=== PATIENT | female | born 1980 | race African-American/Black ===

== ENCOUNTER 2017-05-14 21:58 | Emergency (ER) | payer MEDICAID ==
[~2017-05-14] VITALS: Ht 165.1 cm; Wt 97.5 kg
[2017-05-14] MEDS ORDERED: DiphenhydrAMINE 50mg/ml Inj IVP ONE (22:00)
[2017-05-14] MEDS ORDERED: Solu-MEDROL 125mg Inj IVP ONE (22:00)
[2017-05-14] MEDS: Albuterol ud Inhalation HHN SCH ×3 (22:08→22:42)
[2017-05-14] MEDS: Ipratropium 0.02% Inh Soln 2.5ml UD HHN SCH ×3 (22:08→22:42)
--- NOTE | 2017-05-14 22:23 | Emergency Room Report ---
History of Present Illness General Chief Complaint: Dyspnea/Respdistress Source: Patient Present Illness HPI [id number] BIBEMS for alleged anaphylaxis States had gaucamole, salsa at restaurant, became SOB Gave herself epi injection into thigh EMS found her wheezing, gave albuterol, CPAP, additional Epi Multiple food allergies States 12x intubation previously, last time 1 year ago Feels better after meds Denies rash, abd pain Allergies: Coded Allergies: CHEESE (Verified Allergy, Unknown, 05/14/17) Dairy (Verified Allergy, Unknown, 05/14/17) FISH CONTAINING PRODUCTS (Verified Allergy, Unknown, 05/14/17) PENICILLAMINE (Verified Allergy, Unknown, 05/14/17) SHELLFISH DERIVED (Verified Allergy, Unknown, 05/14/17) Uncoded Allergies: RAW FRUIT (Allergy, Unknown, 05/14/17) RAW VEGETABLES (Allergy, Unknown, 05/14/17) Patient History Past Medical History: asthma Past Surgical History: none Pertinent Family History: none Social History: Denies: smoking, alcohol use, drug use Last Menstrual Period: "2 WEEKS AGO" Now: No Immunizations: UTD Reviewed Nursing Documentation: PMH: Agreed, PSxH: Agreed Nursing Documentation-PMH Hx Asthma: Yes Review of Systems All Other Systems: negative except mentioned in HPI Physical Exam Vital Signs Date Time Temp Pulse Resp B/P (MAP) Pulse Ox O2 Delivery O2 Flow Rate FiO2 05/14/17 21:41 97.9 118 26 151/77 97 Simple Mask 10.0 05/14/17 21:57 50 Sp02 EP Interpretation: reviewed, normal General Appearance: normal inspection, well appearing, no apparent distress, alert, GCS 15, non-toxic Head: normocephalic, atraumatic Eyes: bilateral eye PERRL, bilateral eye EOMI ENT: normal ENT inspection, hearing grossly normal, normal voice Neck: normal inspection, full range of motion, supple, no bony tend Respiratory: normal inspection, no accessory muscle use, decreased breath sounds, speaking full sentences, wheezing, chest symmetrical, palpation of chest normal Cardiovascular #1: regular rate, rhythm, no edema Gastrointestinal: normal inspection, normal bowel sounds, non tender, soft, no guarding, no hernia Genitourinary: no CVA tenderness Musculoskeletal: normal inspection, back normal, normal range of motion, Shira' s Sign negative Neurologic: normal inspection, alert, oriented x3, responsive, time cycle operator III-XII nml as tested, motor strength/tone normal, sensory intact, speech normal Psychiatric: normal inspection, judgement/insight normal, mood/affect normal Skin: normal inspection, normal color, no rash Lymphatic: normal inspection, no adenopathy Procedures Critical Care Time Critical Care Time CC time 30 minutes Includes multiple bedside reassessment on BIPAP for anaphylaxis, review of labs , dosing of medications, possible re-dosing of epi, setting up on BIPAP, endorsement to hospitalist/filter press supervisor Medical Decision Making Diagnostic Impression: Primary Impression: Dyspnea Qualified Codes: R06.00 - Dyspnea, unspecified Additional Impressions: Wheezing Anaphylaxis due to food Qualified Codes: T78.00XA - Anaphylactic reaction due to unspecified food, initial encounter ER Course VSS. Afebrile Improved on BIPAP, steroids, benadryl Lungs CTAB after serial nebs Anaphylaxis/triggered asthma reaction Labs reviewed. No leuks. H&h stable. Mild HypoK Patient did not give Urine CXR negative for PNA Patient removed Bipap in Trauma room States felt better, did not want to be admitted Signed out AMA Repeatedly tried to convince patient to stay for admission She is adamant about going home Patient is clinically sober, is free from from distracting injury, and has intact judgement and capacity to decide to leave against medical advice. Patient came in with suspected anaphylaxis due to food. Received epi x2 prior to ED arrival. Patient understood my concern to admit for further monitoring/evaluation i explained to patient the risks of leaving AMA and patient informed that if they She leaves, sje could get worse, she could become become critically ill, possibly become disabled or . Patient verbalized back to me understanding of these risks but still wants to leave. Was given Rx for prednisone States has enough Albuterol and additional EPI pens at home Will followup with PMD Will return for worsening symptoms EKG Diagnostic Results Rate: normal Rhythm: NSR, other - RBBB incomplete ST Segments: no acute changes Rhythm Strip Diag. Results EP Interpretation: yes Rate: 95 Rhythm: NSR, no PVC's, no ectopy Chest X-Ray Diagnostic Results Chest X-Ray Diagnostic Results : Chest X-Ray Ordered: Yes # of Views/Limited/Complete: 1 View Indication: Shortness of Breath EP Interpretation: Yes Interpretation: no consolidation, no effusion, no pneumothorax, no acute cardiopulmonary disease Impression: No acute disease Interpreting ER Provider: Dr emily Orta MD Last Vital Signs Date Time Temp Pulse Resp B/P (MAP) Pulse Ox O2 Delivery O2 Flow Rate FiO2 05/14/17 22:17 103 16 100 Bi-pap 50 05/14/17 21:41 97.9 151/77 10.0 Status: improved Disposition: ADMITTED INPATIENT Condition: Critical Scripts Prednisone* (PREDNISONE*) 20 Mg Tablet 40 MG ORAL DAILY for 5 Days, #5 TAB Prov: EMILY ORTA M.D. 05/14/17 EMILY ORTA M.D. May 14, 2017 22:23
[2017-05-14 22:27] LABS: BASOPHILS % (AUTO) 1.1 % (0.0-2.0); EOSINOPHILS % (AUTO) 3.5 % (0.0-3.0); MEAN CORPUSCULAR HEMOGLOBIN 32.2 PG (27.0-31.0); MEAN CORPUSCULAR HGB CONC 34.2 G/DL (32.0-36.0); MEAN CORPUSCULAR VOLUME 94 FL (80-99); MONOCYTES % (AUTO) 5.2 % (1.0-10.0); NEUTROPHILS % (AUTO) 61.1 % (45.0-75.0); PLATELET COUNT 302 K/UL (150-450); RED BLOOD COUNT 4.59 M/UL (4.20-5.40); RED CELL DISTRIBUTION WIDTH 11.6 % (11.6-14.8); WHITE BLOOD COUNT 10.6 K/UL (4.8-10.8)
[2017-05-14 22:42] LABS: ALANINE AMINOTRANSFERASE 12 U/L (3-33); ALBUMIN/GLOBULIN RATIO 1.3 (1.0-2.7); ANION GAP 16 (5-15); ASPARTATE AMINO TRANSFERASE 16 U/L (5-40); CALCIUM 9.2 mg/dL (8.6-10.2); CARBON DIOXIDE 22 mEQ/L (20-30); CHLORIDE 96 mEQ/L (98-107); CREATININE 0.9 mg/dL (0.5-0.9); GLOMERULAR FILTRATION RATE > 60 mL/min (>60); HEMOLYSIS 6; POTASSIUM 3.2 mEQ/L (3.4-4.9); SODIUM 134 mEQ/L (135-145); TOTAL PROTEIN 7.9 g/dL (6.6-8.7); TROPONIN I < 0.30 ng/mL (<=0.30)
[2017-05-14 22:52] LABS: CKMB < 1.5 ng/mL (< 3.8)
[2017-05-14 23:13] VITALS: BP 121/66
[2017-05-14] MEDS ORDERED: PREDNISONE20 MG ORAL (23:27)
[2017-05-14 23:33] VITALS: BP 121/66
--- NOTE | 2017-05-18 16:54 | Cardiology Report ---
APPROVED REPORT EKG Measurement Heart [id number] Normal sinus rhythm Incomplete right bundle branch block Nonspecific T wave abnormality Abnormal ECG
== END 2017-05-14 23:35 | disposition left against medical advice (07) ==
LOC: EDBD 21:58 → EMR 21:59
DX: T78.00XA Anaphylactic reaction due to unspecified food, initial encounter (principal); R06.00 Dyspnea, unspecified; R06.2 Wheezing; J45.909 Unspecified asthma, uncomplicated; Z91.013 Allergy to seafood; Z91.018 Allergy to other foods; Z88.8 Allergy status to other drugs, medicaments and biological substances; Z53.21 Procedure and treatment not carried out due to patient leaving prior to being seen by health care provider; X58.XXXA Exposure to other specified factors, initial encounter; Y92.511 Restaurant or cafe as the place of occurrence of the external cause
CPT/HCPCS: 36415; 71010; 80053; 82550; 82553; 83880; 84484; 85025; 93005; 94640; 96374; 96375; 99291; J1200; J2930